=== PATIENT | male | born 1945 | race African-American/Black ===

== ENCOUNTER 2017-05-06 22:13 | Inpatient (IN) ==
[2017-05-07] MEDS ORDERED: SODIUM CHLORIDE 0.9% 500 ML IV STA (02:18)
--- NOTE | 2017-05-07 02:34 | Emergency Department Note ---
Maricarmen Friend Mantricia, am scribing for, and in the presence of, Mao Coburn MD 02:12. Almas Friend Charles R, MD, personally performed the services described in this documentation, ascribed by Felicity Hernadez in my presence, and it is both accurate and complete . Arrival - Arrival Chief Complaint: Weakness Stated Complaint: can't walk ED Nursing Triage Note: C/O Weakness to lower exts, states that the right leg is worse than the left. Onset 0500 this morning upon waking. Pt denies seeking medical attention until now. Denies falling or injury. Denies any other symptoms. Pt is awake, alert and answering questions appropriately. Mode of Arrival: Wheelchair Limitations: No Limitations Source: Patient Time Seen by Provider: 05/07/17 01:53 - History of Present Illness HPI Narrative: Pt is a 72 y/o black male arriving to ED with c/o weakness that onset 0500 yesterday morning. Pt is a poor historian and states that he cannot walk. He reports that his gait is off-balanced and that he woke up weak. He also c/o abdominal pain. Pt admits to smoking but denies drinking alcohol. He has a PMHx of HTN. Pt reports no other complaints to ED. Onset (ago): hour(s) Allergies/Adverse Reactions: Allergies Allergy/AdvReac Type Severity Reaction Status Date / Time No Known Allergies Allergy Verified 04/06/16 13:02 Home Medications: Home Medications Medication Instructions Recorded Confirmed Type Albuterol Inhaler [Proventil 1 puff INH Q6H PRN #1 inhaler 04/04/16 04/06/16 Rx Inhaler] Aspirin EC Tab 81 mg PO DAILY #30 tablet 04/07/16 Rx Atorvastatin [Lipitor] 20 mg PO BEDTIME #30 tablet 04/07/16 Rx Carvedilol [Coreg] 6.25 mg PO BID #60 tablet 04/07/16 Rx Furosemide Tab [Lasix Tab] 40 mg PO DAILY #30 tablet 04/07/16 Rx Lisinopril [Prinivil] 2.5 mg PO DAILY #30 tablet 04/07/16 Rx Potassium Chloride Cap/Tab [K Dur] 20 meq PO DAILY #30 tablet 04/07/16 Rx Review of System - Review of System 12 point system: reviewed and no additional remarkable complaints except as stated - Review of System Constitutional: Absent: chills, diaphoresis, fever Cardiovascular: Absent: chest pain, palpitations Gastrointestinal: Present: abdominal pain Neurological: Present: weakness Medical,Surgical,& Family Hx - Medical History Cardio: History of: CHF, Hypertension Respiratory: History of: Respiratory Problems (EMPHYSEMA) - Family History Family History: Reports;: Family Cancer (BROTHER- NON HODGKINS LYMPHOMA), Family Heart Disease (SISTER), Family Stroke (SISTER) - Social History Smoking Status: Current every day smoker Frequency of Alcohol Use: None Type of Drug Use: None Exam Vital Signs: Vital Signs Temperature 99.7 F H 05/07/17 00:58 Pulse Rate 104 H 05/07/17 00:58 Respiratory Rate 16 05/07/17 00:58 Blood Pressure 113/72 05/07/17 00:58 O2 Sat by Pulse Oximetry 98 05/06/17 22:35 - General General appearance: alert, in no apparent distress, other (weak; emaciated) - Head Head exam: Present: atraumatic, normocephalic, normal inspection - Eye Eye exam: Present: normal appearance, PERRL, EOMI - ENT ENT exam: Present: normal exam, normal oropharynx, mucous membranes moist, TM's normal bilaterally, normal external ear exam - Neck Neck exam: Present: normal inspection, full ROM, trachea midline. Absent: tenderness - Chest Chest inspection: Present: normal inspection, symmetric chest wall rise. Absent : tenderness - Respiratory Respiratory exam: Present: normal lung sounds bilaterally - Cardiovascular Cardiovascular exam: Present: regular rate, normal rhythm, normal heart sounds - Abdominal Exam Abdominal exam: Present: soft, normal bowel sounds. Absent: distention, tenderness, guarding, rebound - Extremities Exam Extremities exam: Present: full ROM, normal capillary refill, other (LE weakness ). Absent: tenderness, pedal edema - Back Exam Back exam: Present: normal inspection, full ROM. Absent: tenderness - Psychiatric Psychiatric exam: Present: normal affect, normal mood - Skin Skin exam: Present: warm, dry, intact, normal color Course - Consultations Consultation #1: Hospitalist will admit patient Time: 05:16 Results - Labs CBC & BMP: 05/07/17 02:18 05/07/17 02:18 Lab Results: I have reviewed the patients labs Critical Care Time Critical Care Time: Yes Total Critical Care Time: 60 Disposition Clinical Impression: Sepsis, Cardiomyopathy, Generalized weakness, Leukocytosis, Fever, Lower extremity weakness, UTI (urinary tract infection), Dehydration, Renal insufficiency Case discussed with: patient, patient's family Disposition: Still a Patient Condition: Guarded Time of Disposition: 04:58 Sepsis - Sepsis Classification of Sepsis: Sepsis - Physical Exam Respiratory exam: rhonchi Capillary Refill: Less Than 3 Seconds Cardiovascular exam: tachycardia Skin exam: normal color NIH Stroke Score - Stroke Score Initial Assessment Level of Consciousness: Alert Level of Consciousness Questions: Answers Both Correctly Level of Consciousness Commands: Obeys Both Correctly Best Gaze: Normal Visual Daniel: No Visual Loss Facial Palsy: Normal Motor - Right Arm: No Drift Motor - Left Arm: No Drift Motor - Right Leg: No Drift Motor - Left Leg: No Drift Limb Ataxia: Absent Sensory (Pin [place]): Partial Loss Best Language: Normal Dysarthria: Normal Extinction / Inattention (Neglect): No Neglect NIH Stroke Score: 1
[2017-05-07 02:36] LABS: Basophils % 0.2 % (0.0-0.8); Hematocrit 42.2 VOL% (42.0-52.0); Hemoglobin 14.2 GM/DL (14.0-18.0); Immature Granulocytes % 2.2 %; Immature Granulocytes Absolute 0.43 #; Lymphocytes # 0.8 10*3/uL (1.4-4.0); Mean Corpuscular HGB Conc 33.6 GM/DL (32-36); Mean Corpuscular Hemoglobin 29 PG (27-34); Mean Corpuscular Volume 85.6 FL (87-102); Mean Platelet Volume 10.3 FL (9.6-12.0); Monocytes % 9.8 % (1.7-12.7); Neutrophils # 16.6 10*3/uL (1.4-7.4); Neutrophils % 83.8 % (38.7-73.9); Platelet Count 153 T/CUMM (130-400); Red Blood Count 4.93 MC/CUMM (3.8-5.5); Red Cell Distribution Width 13.8 % (9.3-17.3); White Blood Count 19.8 T/CUMM (4-12)
[2017-05-07 02:46] LABS: INR 1.2; PT Patient Result 12.7 SECS; Partial Thromboplastin Time 31.3 SECS (0-40)
[2017-05-07 03:03] LABS: Alanine Aminotransferase 22 U/L (16-61); Albumin 3.6 G/DL (3.4-5.0); Alkaline Phosphatase 65 U/L (45-117); Aspartate Amino Transferase 32 U/L (0-37); Blood Urea Nitrogen 32 MG/DL (7-18); Calcium 8.8 MG/DL (8.5-10.1); Glucose 182 MG/DL (74-106); Osmolality,Calculated 286.7 MOS/KG (273-304); Potassium 4.7 MMOL/L (3.5-5.1); Sodium 138 MMOL/L (136-145); Total Protein 6.8 G/DL (6.4-8.3)
[2017-05-07 03:28] LABS: Band Neutrophils 4 % (0-10); Lymphocytes 3 % (20-55); Myelocytes 2 %; Segmented Neutrophils 86 % (50-85)
[2017-05-07 03:29] LABS: Platelet Estimate Normal; Total Cells Counted 100
[2017-05-07 04:26] LABS: Barbiturates Screen,Urine Negative (Negative); Benzodiazepines Screen,Urine Negative (Negative); Cannabinoid Screen,Urine Negative (Negative); Opiate Screen,Urine Negative (Negative); Phencyclidine Screen,Urine Negative (Negative)
[2017-05-07 04:55] LABS: Amorphous Crystals,Urine Occasional /HPF (Few); Bacteria,Urine Few /HPF (Few); Hyaline Casts,Urine 6 /LPF (0-3); Mucus,Urine Occasional /LPF (Occasional); RBC,Urine 5 /HPF (0-4); Sperm,Urine Occasional /HPF (Negative); Squamous Epithelial Cell,Urine Occasional /HPF (0-10); WBC,Urine 16 /HPF (0-6)
[2017-05-07 04:56] LABS: Apearance,Urine Slightly Hazy (Clear); Bilirubin,Urine Negative (Negative); Blood, Urine Large mg/dL (Negative); Glucose,Urine (UA) Negative (Negative); Ketones,Urine Negative (Negative); Nitrite,Urine Negative (Negative); Protein,Urine Negative; Urine Color Dark yellow (Yellow); Urine Urobilinogen 0.2 EU/DL (0.2-1.0)
[2017-05-07] MEDS ORDERED: cefTRIAXone 1,000 MG in SODIUM CHLORIDE 0.9% 100 ML IV STA (05:09)
[2017-05-07] MEDS ORDERED: cefTRIAXone 1,000 MG VIAL ONE (05:20)
[2017-05-07] MEDS ORDERED: SODIUM CHLORIDE 0.9% 100 ML IV ONE (05:20)
[2017-05-07] MEDS ORDERED: LEVOFLOXACIN INJ 250 MG in PREMIX 1 EACH IV SCH (06:00)
--- NOTE | 2017-05-07 06:03 | EKG Report ---
Stationary ECG Study [facility] ER Test Date: 05/07/2017 3:16:28 AM Pat Name: VICKEY DC Department: Room: Gender: M Lamination Operator: : 1945 Requested by: Mao Del Cid Order Number: [id number] Reading MD: MEGAN COLLIER Intervals Iva Rate: 90 P: 74 NC: 137 QRS: 14 QRSD: 85 T: 149 QT: 341 QTc: 389 Interpretive Statements SINUS RHYTHM MODERATE T-WAVE ABNORMALITY, CONSIDER LATERAL ISCHEMIA Electronically Signed On 05-07-17 10:47:14 CDT by MEGAN COLLIER [email or web address]
--- NOTE | 2017-05-07 06:04 | Hospitalist History & Physical ---
Assessment and Plan (1) Abdominal pain Status: Acute Assessment and plan: At the time of my assessment the patient was really started in bed on examination. Association of abdominal pain ataxia can be concerning for possibility of tabes dorsalis. Therefore check RPR on this patient. However the patient does have a urinary tract infection as would not be low because of the abdominal pain Current Visit: Yes (2) Ataxia Status: Acute Assessment and plan: As above. Will get neurology consult. Current Visit: Yes (3) CKD stage 4 secondary to hypertension Status: Acute Current Visit: Yes (4) Leukocytosis Status: Acute Assessment and plan: Secondary to the UTI. Will treat the urinary tract infection continue ceftriaxone and levofloxacin. Levofloxacin to be dosed the patient's GFR Current Visit: Yes (5) Renal insufficiency Status: Acute Current Visit: Yes (6) Sepsis Status: Acute Assessment and plan: This is secondary to urinary tract infection hopefully patient is not bacteremic. Check patient's PSA and also renal sonogram Current Visit: Yes History of Present Illness Chief complaint: Abdominal pain leg weakness and unsteady gait History of present illness: Mr. Gaming is a 72 year old male presented to the ED with complaints of abdominal pain and problems walking since yesterday morning. Patient woke up like this. He lives alone and is not been able to take care of himself very well. Patient is a very poor historian and with the very poor insight. Denies drinking alcohol but admits to smoking some cigarettes. No history of trauma. He does have history of hypertension which he takes medication and believes blood pressure is good. In the emergency room systolic blood pressures in the 160s. Home Medications Medication Instructions Recorded Confirmed Type Albuterol Inhaler [Proventil 1 puff INH Q6H PRN #1 inhaler 04/04/16 05/07/17 Rx Inhaler] Aspirin EC Tab 81 mg PO DAILY #30 tablet 04/07/16 05/07/17 Rx Atorvastatin [Lipitor] 20 mg PO BEDTIME #30 tablet 04/07/16 05/07/17 Rx Carvedilol [Coreg] 6.25 mg PO BID #60 tablet 04/07/16 05/07/17 Rx Furosemide Tab [Lasix Tab] 40 mg PO DAILY #30 tablet 04/07/16 05/07/17 Rx Lisinopril [Prinivil] 2.5 mg PO DAILY #30 tablet 04/07/16 05/07/17 Rx Potassium Chloride Cap/Tab [K Dur] 20 meq PO DAILY #30 tablet 04/07/16 05/07/17 Rx Allergies Allergy/AdvReac Type Severity Reaction Status Date / Time No Known Allergies Allergy Verified 04/06/16 13:02 Medical,Surgical,& Family Hx - Medical History Cardio: History of: CHF, Hypertension Respiratory: History of: Respiratory Problems (EMPHYSEMA) - Family History Family History: Reports;: Family Cancer (BROTHER- NON HODGKINS LYMPHOMA), Family Heart Disease (SISTER), Family Stroke (SISTER) - Social History Smoking Status: Current every day smoker Frequency of Alcohol Use: None Type of Drug Use: None Review of systems: A 12 point system assessment was done by these very difficult to exact date given the poor recall by the patient. He acknowledges weakness of the lower extremity acknowledges having problems walking and acknowledges abdominal pain. I wanted to exact if these symptoms are not new. He acknowledges that he will continue but he has had abdominal pain on and off. No prior history of infections no history of prostatism. Exam - Constitutional Vitals: Period Temp Pulse Resp BP Sys/Pate Pulse Ox Last 24 Hr 99.7 F-99.7 F 104-104 16-16 113-113/72-72 98 General appearance: normal weight - Head Head exam: Present: normocephalic, atraumatic - Eye Eye exam: Present: EOMI, other (Very dusky sclera) Pupils: Present: CHRISTINA - ENT ENT exam: Present: normal exam, other (Dental resection) - Neck Neck exam: Present: normal inspection, other (Supple neck no regional adenopathy midline trachea) - Respiratory Respiratory exam: Present: clear to auscultation bilaterally - Cardiovascular Cardiovascular exam: Present: regular rate and rhythm - GI/Abdominal GI/Abdominal exam: Present: normal bowel sounds, soft, other (No guarding) - Neurological Exam Neurological exam: Present: alert, oriented X3, CN II-XII intact, other (Very poor insight is weakness in the lower extremities I did not walk him because he did not want to stand up being afraid of falling down) - Psychiatric Psychiatric exam: Present: normal affect, normal mood - Skin Skin exam: Present: normal color, warm, dry Results - Labs CBC & BMP: 05/07/17 02:18 05/07/17 02:18 Lab Results: I have reviewed the past 24 hour labs (Patient has very inflamed urine obviously infected white count of 19,800 serum creatinine of 2.3 BUN of 32 urine culture has been sent blood cultures been sent to)
--- NOTE | 2017-05-07 06:34 | CT Report ---
Referring physician: Mao Coburn Exam: CT brain without contrast Date: May 07, 2017 Comparison: None Reason: Hemiparesis, unable to walk The patient was an Emergency Department patient on May 07, 2017. Preliminary report was provided by [facility]. Technique: Axial images of the head were obtained without the use of contrast. Total DLP was 1073.1 mGy*cm. Findings: There is mild generalized cerebral and cerebellar atrophy/volume loss. Areas of hypoattenuation are also seen within the cerebral white matter bilaterally. This is nonspecific but likely represents chronic microvascular ischemic change. There is also a questionable small indeterminate age infarction at the left parietal lobe, which may be remote. Further evaluation could be performed with MRI. No hydrocephalus or midline shift is present. There is no evidence of recent intracranial hemorrhage or abnormal mass effect. No acute osseous process is seen. There may be a small mucous retention cyst within the right maxillary sinus. The mastoid air cells appear clear. Impression: 1. Questionable small indeterminate age infarction at the left parietal lobe, which may be remote. Further evaluation could be performed with MRI. 2. Mild generalized cerebral and cerebellar atrophy/volume loss and probable chronic microvascular ischemic change. The CT exam was performed using one or more of the following dose reduction techniques: Automated exposure control and adjustment of the mA and/or kV according to patient size. PROCEDURE INTERPRETED AT [facility] DEPARTMENT OF RADIOLOGY Final Report Signed by: Dr. Shantelle Gallegos
--- NOTE | 2017-05-07 07:57 | XRay Report ---
Referring Physician: Mao Coburn Exam: XR chest 1V portable Date: May 07, 2017 at 2:44 AM Reason: Cardiomegaly Comparison: Chest one view portable April 06, 2016 Findings: The cardiac silhouette is upper normal in size. There is also persistent mild elevation of the left hemidiaphragm and minimal atelectasis at the lung bases. No pneumothorax or definite pleural fluid is identified. No acute osseous process is seen. Impression: 1. The cardiac silhouette is upper normal in size. It appears less prominent today, which may be related to slight differences in imaging technique. Cardiac size could be better evaluated with a chest PA and lateral study. 2. There is persistent mild elevation of the left hemidiaphragm and minimal atelectasis at the lung bases. PROCEDURE INTERPRETED AT [facility] DEPARTMENT OF RADIOLOGY Final Report Signed by: Dr. Shantelle Gallegos
--- NOTE | 2017-05-07 09:03 | Ultrasound Report ---
Referring Physician: Nick Robles MD Exam: US renal Bilateral Date: May 07, 2017 Reason: Renal failure, UTI Comparison: None Technique: Grayscale and color flow Doppler ultrasound images of the kidneys were obtained. Ultrasound images were captured and stored. Findings: The right kidney measures 7.6 x 4.1 x 3.8 cm, and the left kidney measures 7.6 x 5.1 x 3.7 cm. No hydronephrosis is present. The renal parenchyma echogenicity is unremarkable as visualized. There is a 2.3 x 2.2 x 2.2 cm cyst at the mid left kidney. No suspicious solid renal lesion is identified. Impression: 1. No acute process is identified. 2. The kidneys measure slightly small in size, but the renal parenchyma echogenicity is unremarkable. 3. Left renal cyst. PROCEDURE INTERPRETED AT [facility] DEPARTMENT OF RADIOLOGY Final Report Signed by: Dr. Shantelle Gallegos
--- NOTE | 2017-05-07 09:15 | Neurology Consult Note ---
History of Present Illness History of present illness: 72-year-old right-handed -[place] gentleman with past medical history significant for hypertension, smoking admitted to the hospital with difficulty in walking and unsteady gait patient also has some abdominal pain. He lives at home alone. No family is available at this time to discuss the history. Patient reported that he has been sick for a while. He states that he just cannot walk. No speech difficulties reported. No swallowing difficulties, vision difficulties reported. He states that his right leg is slightly weak. Home Medications Medication Instructions Recorded Confirmed Type Albuterol Inhaler [Proventil 1 puff INH Q6H PRN #1 inhaler 04/04/16 05/07/17 Rx Inhaler] Aspirin EC Tab 81 mg PO DAILY #30 tablet 04/07/16 05/07/17 Rx Atorvastatin [Lipitor] 20 mg PO BEDTIME #30 tablet 04/07/16 05/07/17 Rx Carvedilol [Coreg] 6.25 mg PO BID #60 tablet 04/07/16 05/07/17 Rx Furosemide Tab [Lasix Tab] 40 mg PO DAILY #30 tablet 04/07/16 05/07/17 Rx Lisinopril [Prinivil] 2.5 mg PO DAILY #30 tablet 04/07/16 05/07/17 Rx Potassium Chloride Cap/Tab [K Dur] 20 meq PO DAILY #30 tablet 04/07/16 05/07/17 Rx Allergies Allergy/AdvReac Type Severity Reaction Status Date / Time No Known Allergies Allergy Verified 04/06/16 13:02 12 point system: reviewed and no additional remarkable complaints except as stated Medical,Surgical,& Family Hx - Medical History Cardio: History of: CHF, Hypertension Neurology: History of: TIA Respiratory: History of: Respiratory Problems (EMPHYSEMA) - Family History Family History: Reports;: Family Cancer (BROTHER- NON HODGKINS LYMPHOMA), Family Heart Disease (SISTER), Family Stroke (SISTER) - Social History Smoking Status: Current every day smoker Frequency of Alcohol Use: None Type of Drug Use: None Exam - Constitutional Vitals: Period Temp Pulse Resp BP Sys/Pate Pulse Ox Last 24 Hr 98.0 F-99.7 F 99-104 16-20 113-178/72-92 97-98 Exam: GENERAL: Patient is in no acute distress. NECK: Neck is supple. There is no JVD. No carotid bruits present. No thyroid masses. CVS: First and second heart sounds are normal. There is no S3 present. Regular rate and rhythm. RESPIRATORY: Lungs are clear to auscultation without any rales or rhonchi. ABDOMEN: Soft and non-tender. Bowel sounds are present. There is no hepatosplenomegaly. EXT: There is no palpable edema. Peripheral pulses are present. Skin: No rashes Central Nervous system: General: Alert, awake Speech: Fluent with questionable dysarthria Comprehension: Fair Facial expressions: Normal Cranial Nerves: CN1/Olfactory: Normal CN II/ Optic: Normal, Visual Daniel unreliable CN III, and : CHRISTINA & EOMI CN V: Normal & intact CN VII: face is symmetric CNVIII: Normal CN XI/X/XI/XII: Intact and Normal Motor: Bulk and Tone is normal. Strength in the right 3-4/5 Strength in the left 4-55/5 Sensory: Grossly intact for all the modalities of PP, LT and temp sense Reflexes: 1+ and symmetrical Cerebellar function: Normal finger to nose and heel to mccartney testing. Toes: Equivocal Gait: Could not get out of the bed. Markedly ataxic gait. Results - Labs CBC & BMP: 05/07/17 02:18 05/07/17 02:18 Assessment and Plan (1) UTI (urinary tract infection) Status: Acute Assessment and plan: Continue current antibiotic coverage Current Visit: Yes (2) Gait disorder Status: Acute Assessment and plan: MRI of the brain. Consult PT and OT. Add aspirin a day Current Visit: Yes
--- NOTE | 2017-05-07 10:57 | XRay Report ---
Exam: XR orbits for mri Date: 05/07/2017 10:20 AM Comparison: None Indication: MRI clearance Technique:[3 view orbit] Findings: No metallic foreign body is identified in the orbital location. Impression: No metallic foreign body is identified in the orbital location. The patient is edentulous with degenerative changes. PROCEDURE INTERPRETED AT [facility] DEPARTMENT OF RADIOLOGY Final Report Signed by: Dr. Zaira Mendoza
[2017-05-07] MEDS ORDERED: ACETAMINOPHEN 325 MG TABLET PO PRN (11:58)
--- NOTE | 2017-05-07 13:23 | Magnetic Resonance Report ---
Exam: MR head/brain wo con Date: 05/07/2017 9:17 AM Comparison: CT brain 05/07/2017 Indication: Ataxia, abnormal gait, right leg weakness Technique:[Multiple acquisitions were obtained including sagittal T1, coronal T2, and axial ADC, diffusion, FLAIR, T2, GRE, and T1 scans without contrast only. Scans were obtained on a 1.5 Izabella magnet.] Findings: The ventricles are normal in size with no midline displacement. The pituitary has a normal appearance and the cerebellar tonsils are normal in their location. Very small area of restricted diffusion in the left parietal lobe. No evidence of hemorrhage, mass, or extracerebral collection. Diffuse atrophy with extensive FLAIR/T2 hyperintensities. Enlarged perivascular spaces are noted which are absent a normal variant. Minimal mucosal thickening/fluid in the paranasal sinuses. No acute findings in the orbits, temporal bones, or [place] of [place]. 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 Additional atrophy and extensive microvascular disease. T2 hyperintensities can also be associated with demyelinating disease, vasculitis, viral illness, etc. Enlarged perivascular spaces. Minimal sinusitis. PROCEDURE INTERPRETED AT [facility] DEPARTMENT OF RADIOLOGY Final Report Signed by: Dr. Zaira Mendoza
[2017-05-07] MEDS: SODIUM CHLORIDE 0.9% 1,000 ML IV SCH (14:58)
[2017-05-07] MEDS ORDERED: ALBUTEROL 2.5 MG/3 ML NEB RESP TX PRN (19:00)
[2017-05-07] MEDS: CARVEDILOL 6.25 MG TABLET PO SCH (20:54)
[2017-05-07] MEDS: cefTRIAXone 2,000 MG in SODIUM CHLORIDE 0.9% 100 ML IV SCH (23:15)
[2017-05-08] MEDS: SODIUM CHLORIDE 0.9% 1,000 ML IV SCH ×3 (01:51→21:13)
[2017-05-08 06:30] LABS: Basophils % 0.2 % (0.0-0.8); Eosinophils % 0.1 % (0.00-10.9); Hematocrit 40.6 VOL% (42.0-52.0); Hemoglobin 13.3 GM/DL (14.0-18.0); Immature Granulocytes Absolute 0.15 #; Lymphocytes # 0.9 10*3/uL (1.4-4.0); Lymphocytes % 5.9 % (21.2-54.2); Mean Corpuscular HGB Conc 32.8 GM/DL (32-36); Mean Corpuscular Hemoglobin 28 PG (27-34); Mean Corpuscular Volume 86.8 FL (87-102); Mean Platelet Volume 10.6 FL (9.6-12.0); Monocytes # 1.9 10*3/uL (0.11-0.8); Monocytes % 13.2 % (1.7-12.7); Neutrophils # 11.5 10*3/uL (1.4-7.4); Neutrophils % 79.6 % (38.7-73.9); Platelet Count 140 T/CUMM (130-400); Red Blood Count 4.68 MC/CUMM (3.8-5.5); Red Cell Distribution Width 14.2 % (9.3-17.3); White Blood Count 14.4 T/CUMM (4-12)
[2017-05-08 06:49] LABS: Lactic Acid 1.2 MMOL/L (0.4-2.0)
[2017-05-08 06:57] LABS: Burr Cells Slight; Hypochromasia Slight; Lymphocytes 7 % (20-55); Platelet Estimate Decreased; Segmented Neutrophils 89 % (50-85); Total Cells Counted 100
[2017-05-08 06:59] LABS: Calcium 8.7 MG/DL (8.5-10.1); Magnesium 2.2 MG/DL (1.8-2.4); Osmolality,Calculated 286.3 MOS/KG (273-304); Potassium 4.4 MMOL/L (3.5-5.1)
[2017-05-08] MEDS: CARVEDILOL 6.25 MG TABLET PO SCH ×2 (09:12→20:21)
[2017-05-08] MEDS: LISINOPRIL 2.5 MG TABLET PO SCH (09:12)
[2017-05-08] MEDS: ASPIRIN EC 325 MG TABLET PO SCH (09:12)
[2017-05-08] MEDS: VANCOMYCIN INJ 1,000 MG in SODIUM CHLORIDE 0.9% 250 ML IV SCH (11:02)
--- NOTE | 2017-05-08 16:02 | Hospitalist Progress Note ---
Assessment and Plan (1) Leukocytosis Status: Acute Assessment and plan: Has UTI. on rocephin Blood cultures with gram positive cocci, started on vanc Current Visit: Yes (2) Lower extremity weakness Status: Acute Assessment and plan: Working with PT/OT Neurology consulted MRI with very small acute infarction of the left parietal lobe Ordered echo and carotid dopplers lipid panel ordered Current Visit: Yes (3) UTI (urinary tract infection) Status: Acute Assessment and plan: Continue rocephin Current Visit: Yes (4) Renal insufficiency Status: Acute Assessment and plan: Improving with IV fluids Current Visit: Yes Hospitalist: Subjective Interval history: No acute events overnight. Patient with no complaints. Working with PT/OT. Exam - Constitutional Vitals: Period Temp Pulse Resp BP Sys/Pate Pulse Ox Last 24 Hr 97.9 F-99.2 F 67-102 16-20 147-181/31-83 97-99 General appearance: normal weight - Head Head exam: Present: normocephalic, atraumatic - Eye Eye exam: Present: EOMI Pupils: Present: CHRISTINA - ENT ENT exam: Present: normal exam - Neck Neck exam: Present: normal inspection - Respiratory Respiratory exam: Present: clear to auscultation bilaterally. Absent: rhonchi, wheezes - Cardiovascular Cardiovascular exam: Present: regular rate and rhythm - GI/Abdominal GI/Abdominal exam: Present: normal bowel sounds, soft. Absent: tenderness, rebound - Extremities Exam Extremities exam: Present: normal inspection - Back Exam Back exam: Present: normal inspection - Neurological Exam Neurological exam: Present: alert, oriented X3 - Psychiatric Psychiatric exam: Present: normal affect, normal mood - Skin Skin exam: Present: warm, intact Results - Labs CBC & BMP: 05/08/17 06:11 05/08/17 06:11
--- NOTE | 2017-05-08 16:48 | Ultrasound Report ---
Exam: US carotid duplex BI Date: 05/08/2017 3:53 PM Indication: CVA Findings: Grayscale color flow analysis and spectral analysis imaging was performed with image stored and captured. Right Flow velocities centimeters per second Common carotid artery: 53 Proximal ICA: 29 Distal ICA: 60 External carotid artery: 76 Vertebral artery: 56 ICA/CCA ratio: 1.1 Measurements in millimeters Distal ICA: 6.3 Left: Flow velocities centimeters per second Common carotid artery: 77 Proximal ICA: 31 Distal ICA: 64 External carotid artery: 70 Vertebral artery: 66 ICA/CCA ratio: 0.8 Measurements in millimeters Distal ICA: 5. Mild intimal hyperplasia. Normal color flow. No spectral broadening Impression: 1. Intimal hyperplasia the common carotid arteries 2. 16-49% stenosis of the internal carotid arteries bilaterally. No high-grade stenosis or occlusion present. Today studies were performed utilizing indirect NASCET criteria The ultrasound images were stored and captured PROCEDURE INTERPRETED AT [facility] DEPARTMENT OF RADIOLOGY Final Report Signed by: Dr. Julien Garrido
--- NOTE | 2017-05-08 17:37 | Neurology Progress Note ---
Neurology - PN : Subjective Interval history: Patient seems to be doing better. Participating somewhat in therapy. No new problems reported. 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 Exam (Progress Note) - Constitutional Vitals: Period Temp Pulse Resp BP Sys/Pate Pulse Ox Last 24 Hr 98.0 F-99.2 F 67-102 18-20 147-181/31-83 97-99 Exam: GENERAL: Patient is in no acute distress. NECK: Neck is supple. There is no JVD. No carotid bruits present. No thyroid masses. CVS: First and second heart sounds are normal. There is no S3 present. Regular rate and rhythm. RESPIRATORY: Lungs are clear to auscultation without any rales or rhonchi. ABDOMEN: Soft and non-tender. Bowel sounds are present. There is no hepatosplenomegaly. EXT: There is no palpable edema. Peripheral pulses are present. Skin: No rashes Central Nervous system: General: Alert, awake Speech: Fluent with questionable dysarthria Comprehension: Fair Facial expressions: Normal Cranial Nerves: CN1/Olfactory: Normal CN II/ Optic: Normal, Visual Daniel unreliable CN III, and : CHRISTINA & EOMI CN V: Normal & intact CN VII: face is symmetric CNVIII: Normal CN XI/X/XI/XII: Intact and Normal Motor: Bulk and Tone is normal. Strength in the right 3-4/5 Strength in the left 4-55/5 Sensory: Grossly intact for all the modalities of PP, LT and temp sense Reflexes: 1+ and symmetrical Cerebellar function: Normal finger to nose and heel to mccartney testing. Toes: Equivocal Gait: Could not get out of the bed. Markedly ataxic gait. Results - Labs CBC & BMP: 05/08/17 06:11 05/08/17 06:11 Assessment and Plan (1) UTI (urinary tract infection) Status: Acute Assessment and plan: Continue current antibiotic coverage Current Visit: Yes (2) Gait disorder Status: Acute Assessment and plan: Continue aspirin a day Consult TMR Current Visit: Yes (3) Acute CVA (cerebrovascular accident) Status: Acute Current Visit: Yes
[2017-05-08] MEDS: cefTRIAXone 2,000 MG in SODIUM CHLORIDE 0.9% 100 ML IV SCH (23:48)
[2017-05-09 05:09] LABS: Basophils % 0.2 % (0.0-0.8); Eosinophils # 0.2 10*3/uL (0.0-0.87); Hematocrit 37.1 VOL% (42.0-52.0); Hemoglobin 12.4 GM/DL (14.0-18.0); Immature Granulocytes % 0.9 %; Immature Granulocytes Absolute 0.09 #; Lymphocytes # 0.9 10*3/uL (1.4-4.0); Lymphocytes % 8.6 % (21.2-54.2); Mean Corpuscular HGB Conc 33.4 GM/DL (32-36); Mean Corpuscular Hemoglobin 29 PG (27-34); Mean Corpuscular Volume 85.5 FL (87-102); Mean Platelet Volume 10.4 FL (9.6-12.0); Monocytes # 1.5 10*3/uL (0.11-0.8); Monocytes % 14.6 % (1.7-12.7); Neutrophils # 7.7 10*3/uL (1.4-7.4); Neutrophils % 73.7 % (38.7-73.9); Platelet Count 133 T/CUMM (130-400); Red Blood Count 4.34 MC/CUMM (3.8-5.5); Red Cell Distribution Width 13.9 % (9.3-17.3); White Blood Count 10.4 T/CUMM (4-12)
[2017-05-09 05:31] LABS: Hypochromasia Slight; Microcytosis Slight
[2017-05-09 05:32] LABS: Burr Cells Slight; Platelet Estimate Adequate
[2017-05-09 05:45] LABS: Calcium 8.1 MG/DL (8.5-10.1); Magnesium 2.4 MG/DL (1.8-2.4); Osmolality,Calculated 286.3 MOS/KG (273-304); Potassium 3.9 MMOL/L (3.5-5.1); Risk Ratio 4.27; VLDL CHOLESTEROL 18.6 MG/DL
[2017-05-09] MEDS: CARVEDILOL 6.25 MG TABLET PO SCH ×2 (08:32→20:55)
[2017-05-09] MEDS: ASPIRIN EC 325 MG TABLET PO SCH (08:32)
[2017-05-09] MEDS: LISINOPRIL 2.5 MG TABLET PO SCH (08:32)
[2017-05-09] MEDS: VANCOMYCIN INJ 1,000 MG in SODIUM CHLORIDE 0.9% 250 ML IV SCH (10:54)
--- NOTE | 2017-05-09 11:26 | Case Mgmt Physician Query Form ---
TB Signs and Symptoms Screening ([place]) INSTRUCTIONS: To be completed annually on residents/staff with a significant Tuberculin Skin Test (TST) upon admission/hire or a prior significant TST. To be completed on all staff at hire. Please respond to each listed symptom with an (X) in either the "YES" or "NO" box. Do you currently have any of the following symptoms: YES NO ( ) (x ) A cough If yes, is it: ( ) Productive ( ) Non- productive ( ) (x ) Hemoptysis (spitting up blood) ( ) (x ) Chest pains ( ) (x ) Weight Loss ( ) (x ) Fever ( ) (x ) Night Sweats ( ) (x ) Weakness ( ) (x ) Loss of Appetite ( ) (x ) Difficulty Breathing If you answered YES" to any of the above questions, how long have symptoms been present? Comments: ABY
--- NOTE | 2017-05-09 15:39 | Neurology Progress Note ---
Neurology - PN : Subjective Interval history: Mr. mims seems to be doing okay. Walking somewhat with walker with mod assist. Insurance denied acute rehab placement. Exam (Progress Note) - Constitutional Vitals: Period Temp Pulse Resp BP Sys/Pate Pulse Ox Last 24 Hr 96.9 F-98.8 F 67-97 16-20 127-178/70-98 95-99 Exam: GENERAL: Patient is in no acute distress. NECK: Neck is supple. There is no JVD. No carotid bruits present. No thyroid masses. CVS: First and second heart sounds are normal. There is no S3 present. Regular rate and rhythm. RESPIRATORY: Lungs are clear to auscultation without any rales or rhonchi. ABDOMEN: Soft and non-tender. Bowel sounds are present. There is no hepatosplenomegaly. EXT: There is no palpable edema. Peripheral pulses are present. Skin: No rashes Central Nervous system: General: Alert, awake Speech: Fluent with questionable dysarthria Comprehension: Fair Facial expressions: Normal Cranial Nerves: CN1/Olfactory: Normal CN II/ Optic: Normal, Visual Daniel unreliable CN III, and : CHRISTINA & EOMI CN V: Normal & intact CN VII: face is symmetric CNVIII: Normal CN XI/X/XI/XII: Intact and Normal Motor: Bulk and Tone is normal. Strength in the right 3-4/5 Strength in the left 4-55/5 Sensory: Grossly intact for all the modalities of PP, LT and temp sense Reflexes: 1+ and symmetrical Cerebellar function: Normal finger to nose and heel to mccartney testing. Toes: Equivocal Gait: Could not get out of the bed. Markedly ataxic gait. Results - Labs CBC & BMP: 05/09/17 05:03 05/09/17 05:03 Assessment and Plan (1) UTI (urinary tract infection) Status: Acute Assessment and plan: Continue current antibiotic coverage Current Visit: Yes (2) Gait disorder Status: Acute Assessment and plan: As above Current Visit: Yes (3) Acute CVA (cerebrovascular accident) Status: Acute Assessment and plan: Continue aspirin a day. Okay to go to swing bed when okay with PCP Sign off please call as needed Current Visit: Yes
--- NOTE | 2017-05-09 16:30 | Hospitalist Progress Note ---
Assessment and Plan (1) Leukocytosis Status: Acute Assessment and plan: Has UTI. on rocephin Blood cultures with gram positive cocci, started on vanc Repeat blood cultures with no growth after one day, believe this gonna be contaminant. Current Visit: Yes (2) Lower extremity weakness Status: Acute Assessment and plan: Working with PT/OT Neurology consulted MRI with very small acute infarction of the left parietal lobe Ordered echo Carotid dopplers ok lipid panel ordered Current Visit: Yes (3) UTI (urinary tract infection) Status: Acute Assessment and plan: Continue rocephin Urine culture grew enterobacter cloacae Current Visit: Yes (4) Renal insufficiency Status: Acute Assessment and plan: Improving with IV fluids Current Visit: Yes Hospitalist: Subjective Interval history: No acute events overnight. Patient doing well, ambulating with PT/OT. Working on placement Exam - Constitutional Vitals: Period Temp Pulse Resp BP Sys/Pate Pulse Ox Last 24 Hr 96.9 F-98.8 F 79-97 16-20 127-178/70-98 95-99 General appearance: normal weight - Head Head exam: Present: normocephalic, atraumatic - Eye Eye exam: Present: EOMI Pupils: Present: CHRISTINA - ENT ENT exam: Present: normal exam - Neck Neck exam: Present: normal inspection - Respiratory Respiratory exam: Present: clear to auscultation bilaterally. Absent: wheezes - Cardiovascular Cardiovascular exam: Present: regular rate and rhythm - GI/Abdominal GI/Abdominal exam: Present: normal bowel sounds, soft. Absent: tenderness, rebound - Extremities Exam Extremities exam: Present: normal inspection - Back Exam Back exam: Present: normal inspection - Neurological Exam Neurological exam: Present: alert, oriented X3 - Psychiatric Psychiatric exam: Present: normal affect, normal mood - Skin Skin exam: Present: warm, intact Results - Labs CBC & BMP: 05/09/17 05:03 05/09/17 05:03
[2017-05-09] MEDS: SODIUM CHLORIDE 0.9% 1,000 ML IV SCH ×2 (16:38→18:29)
--- NOTE | 2017-05-09 17:39 | ECHO Report ---
Antoine Gaming Exam Date: 05/09/2017 10:23 Referring Physician: Technologist: alana Bone ARDMS, RVT Age: 72 Ht (in): 67 Wt (lb): 156 Gender: M Exam Location: [facility] Echo Indications: Renal Insufficiency, CVA, Leukocytosis, UTI, Lower extremity weakness BP: 127 / 70 HR: 79 Rhythm: Sinus Technical Quality: IMPRESSIONS 1. Left ventricle is normal size with mild global hypokinesis with ejection fraction of 45%. There is mild concentric left ventricular hypertrophy. Mild diastolic dysfunction. 2. Right atrium is mildly dilated, left atrium is mild to moderately dilated. 3. Right ventricle is normal size and function. 4. Aortic valve is mildly sclerotic but without gross evidence of stenosis or regurgitation. 5. Mild elevated right-sided pressures. 6. Mild pulmonic valve insufficiency. MEASUREMENTS (Male / Female) Normal Values 2D ECHO LV Diastolic Diameter PLAX 4.2 cm 4.2 - 5.9 / 3.9 - 5.3 cm LV Systolic Diameter PLAX 3.3 cm LV Fractional Shortening PLAX 21.5 % IVS Diastolic Thickness 1.3 cm 0.6 - 1.0 / 0.6 - 0.9 cm LVPW Diastolic Thickness 1.2 cm 0.6 - 1.0 / 0.6 - 0.9 cm RV Internal Dim ED PLAX 2.8 cm Aortic Root Diameter 3.6 cm LA Systolic Diameter LX 4.9 cm 3.0 - 4.0 / 2.7 - 3.8 cm DOPPLER TR Peak Velocity 307.0 cm/s TR Peak Gradient 37.7 mmHg FINDINGS Left Ventricle Normal left ventricular cavity size. Mild left ventricular hypertrophy. Left ventricular ejection fraction is estimated at 45 %. Right Ventricle Normal right ventricular size. Right Atrium The right atrium is mildly enlarged. Left Atrium Moderately increased left atrial size. Mitral Valve Morphologically normal mitral valve without significant stenosis or prolapse. There is no mitral regurgitation. Aortic Valve Aortic valve is mildly sclerotic with good excursion/motion. There is no stenosis or regurgitation. Tricuspid Valve Morphologically normal tricuspid valve. Trace tricuspid valve regurgitation. Tricuspid regurgitation velocities suggest a PAP of 48 mmHg. Pulmonic Valve Morphologically normal pulmonic valve. Mild pulmonary valve regurgitation. Pericardium Normal pericardium without effusion. Aorta Normal ascending aorta dimension. Ehsan Metzger MD (Electronically Signed) Final Date: 09 May 2017 17:37
[2017-05-10] MEDS: cefTRIAXone 2,000 MG in SODIUM CHLORIDE 0.9% 100 ML IV SCH (01:08)
[2017-05-10 05:36] LABS: Basophils % 0.3 % (0.0-0.8); Eosinophils # 0.3 10*3/uL (0.0-0.87); Eosinophils % 3.9 % (0.00-10.9); Hematocrit 36.4 VOL% (42.0-52.0); Hemoglobin 12.2 GM/DL (14.0-18.0); Immature Granulocytes % 1.5 %; Immature Granulocytes Absolute 0.11 #; Lymphocytes # 1.1 10*3/uL (1.4-4.0); Lymphocytes % 15.3 % (21.2-54.2); Mean Corpuscular HGB Conc 33.5 GM/DL (32-36); Mean Corpuscular Hemoglobin 29 PG (27-34); Mean Corpuscular Volume 85.6 FL (87-102); Mean Platelet Volume 10.5 FL (9.6-12.0); Monocytes # 1.1 10*3/uL (0.11-0.8); Monocytes % 15.3 % (1.7-12.7); Neutrophils # 4.8 10*3/uL (1.4-7.4); Neutrophils % 63.7 % (38.7-73.9); Platelet Count 148 T/CUMM (130-400); Red Blood Count 4.25 MC/CUMM (3.8-5.5); Red Cell Distribution Width 14.2 % (9.3-17.3); White Blood Count 7.5 T/CUMM (4-12)
[2017-05-10 06:02] LABS: Band Neutrophils 1 % (0-10); Burr Cells Slight; Eosinophils 2 % (0-10); Hypochromasia 1+; Lymphocytes 17 % (20-55); Ovalocytes Slight; Platelet Estimate Normal; Segmented Neutrophils 66 % (50-85); Total Cells Counted 100
[2017-05-10 06:03] LABS: Calcium 8.5 MG/DL (8.5-10.1); Magnesium 2.4 MG/DL (1.8-2.4); Microcytosis Slight; Osmolality,Calculated 288.8 MOS/KG (273-304); Potassium 3.9 MMOL/L (3.5-5.1)
[2017-05-10] MEDS ORDERED: TUBERCULIN SKIN TEST 0.1 ML SYRINGE INTRADERM ONE (07:03)
[2017-05-10] MEDS: LISINOPRIL 2.5 MG TABLET PO SCH (10:41)
[2017-05-10] MEDS: SODIUM CHLORIDE 0.9% 1,000 ML IV SCH (10:41)
[2017-05-10] MEDS: ASPIRIN EC 325 MG TABLET PO SCH (10:42)
[2017-05-10] MEDS: CARVEDILOL 6.25 MG TABLET PO SCH ×2 (10:42→20:44)
[2017-05-10] MEDS: VANCOMYCIN INJ 1,000 MG in SODIUM CHLORIDE 0.9% 250 ML IV SCH (11:24)
--- NOTE | 2017-05-10 13:36 | Hospitalist Progress Note ---
Assessment and Plan (1) Leukocytosis Status: Acute Assessment and plan: Has UTI. on rocephin Blood cultures with gram positive cocci, started on vanc Repeat blood cultures with no growth after one day, possibly contaminant Current Visit: Yes (2) Lower extremity weakness Status: Acute Assessment and plan: Working with PT/OT Neurology consulted, signed off MRI with very small acute infarction of the left parietal lobe Echo performed Carotid dopplers ok lipids ok Working on rehab placement Current Visit: Yes (3) UTI (urinary tract infection) Status: Acute Assessment and plan: Continue rocephin, day 3 Urine culture grew enterobacter cloacae Current Visit: Yes (4) Renal insufficiency Status: Acute Assessment and plan: Improving with IV fluids Appears to be at baseline per our system Discontinue IV fluids, encourage po intake Current Visit: Yes Hospitalist: Subjective Interval history: No acute events overnight. Patient seen today sitting in chair beside bed. He's working well with PT/OT. Exam - Constitutional Vitals: Period Temp Pulse Resp BP Sys/Pate Pulse Ox Last 24 Hr 96.7 F-98.8 F 72-93 16-20 151-180/90-97 97-99 General appearance: under weight - Head Head exam: Present: normocephalic, atraumatic - Eye Eye exam: Present: EOMI Pupils: Present: CHRISTINA - ENT ENT exam: Present: normal exam - Neck Neck exam: Present: normal inspection - Respiratory Respiratory exam: Present: clear to auscultation bilaterally. Absent: wheezes - Cardiovascular Cardiovascular exam: Present: regular rate and rhythm - GI/Abdominal GI/Abdominal exam: Present: normal bowel sounds, soft. Absent: tenderness, rebound - Extremities Exam Extremities exam: Present: normal inspection - Back Exam Back exam: Present: normal inspection - Neurological Exam Neurological exam: Present: alert, oriented X3 - Psychiatric Psychiatric exam: Present: normal affect, normal mood - Skin Skin exam: Present: warm, intact Results - Labs CBC & BMP: 05/10/17 04:54 05/10/17 04:54
[2017-05-11] MEDS: cefTRIAXone 2,000 MG in SODIUM CHLORIDE 0.9% 100 ML IV SCH (00:02)
[2017-05-11 07:06] LABS: Calcium 8.8 MG/DL (8.5-10.1); Magnesium 2.4 MG/DL (1.8-2.4); Osmolality,Calculated 292.4 MOS/KG (273-304); Potassium 4.2 MMOL/L (3.5-5.1)
[2017-05-11] MEDS: CARVEDILOL 6.25 MG TABLET PO SCH (09:06)
[2017-05-11] MEDS: LISINOPRIL 2.5 MG TABLET PO SCH (09:06)
[2017-05-11] MEDS: ASPIRIN EC 325 MG TABLET PO SCH (09:06)
[2017-05-11] MEDS ORDERED: VANCOMYCIN INJ 1,000 MG in SODIUM CHLORIDE 0.9% 250 ML IV SCH (12:00)
[2017-05-11 13:02] VITALS: BP 174/93
--- NOTE | 2017-05-11 14:13 | Discharge Summary ---
<Alejandra Holland - Last Filed: 05/11/17 14:02> Hospital Course - Hospital Course Hospital Course: This is a very pleasant 72-year-old male that presented to the ED at [facility] on May 07, 2017 for evaluation of weakness and inability to walk. The patient has a medical history significant for congestive heart failure, hypertension, nicotine addiction, and emphysema. The patient reported the onset of the above symptoms on the morning of presentation. The patient reported that he noticed that he could not walk when he woke up on that morning. He reports that he attempted to walk multiple times and that his gait was off balance and he was profoundly weak. In addition the patient complained of abdominal pain. The patient reported a current history of smoking however denies drinking alcohol. He became alarmed and notified his family. They transported him to the ED for further evaluation. The patient was assessed at the time of ED presentation. He was noted to be normotensive with a blood pressure 113/72. The patient was also mildly febrile with a temperature noted at 99.7. Complete blood count was obtained and reported a white blood cell count at 19.8, hemoglobin of 14.2, hematocrit 42.2, and platelet count at 153. Chemistry panel reported a sodium at 138, potassium at 4.7, chloride at 102, Carbon dioxide at 25, BUN at 32, creatinine at 2.30 and glucose at 182. Urinalysis reported a large amount of leukocytes present. CT head was obtained which suggested a small questionable indeterminate age infarct at the left parietal lobe which could be remote in origin and mild generalized cerebral and cerebella atrophy/volume loss and probable chronic microvascular ischemic change. Chest x-ray was significant for persistent mild elevation of the left hemidiaphragm and minimal atelectasis at the lung bases the patient was subsequently admitted to the hospitalist group for continuation of care. Empiric antibiotic coverage was initiated. ESTUARDO inhibitors, beta-blockers, and aspirin was initiated prophylactically. Physical therapy and Occupational Therapy consultations were requested. Renal ultrasound reported no acute processes, the kidneys were slightly small in size, but the renal parenchymal echogenicity is unremarkable and the presence of a left renal cyst was noted. Neurology was consulted. MRI was obtained on May 07, 2017 which reported a very small acute infarction in the left parietal lobe, additional atrophy and extensive microvascular disease, T2 hyperintensities can be associated with demyelinating disease, vasculitis, and or vascular illnesses. In addition there was enlargement to the perivascular spaces and minimal sinusitis. The patient's condition has greatly improved since admission. He has not experienced any significant overnight events. His vital signs are stable. Today, we feel that he is indeed appropriate for discharge to the [facility] for continuation of care and rehabilitation. He will need to continue Vancomycin for 14 days beyond clear blood cultures to complete therapy on May 22, 2017 for Staph simulans bacteremia and will need to continue Ceftriaxone for a 7 day course to complete on May 14 for and Enterobacter cloacae UTI. Discharge Plan - Discharge Data Disposition: Swing Bed, Hos Based, [facility] - Discharge Medications New Albuterol Neb [Proventil Neb] 2.5 mg RESP TX RT Q6H PRN PRN Reason: Shortness Of Breath Carvedilol [Coreg] 6.25 mg PO BID tablet Lisinopril [Prinivil] 2.5 mg PO DAILY tablet cefTRIAXone [Rocephin] 2,000 mg IV Q24H vial Acetaminophen Tab [Tylenol Tab] 650 mg PO Q4H PRN tablet PRN Reason: Fever, Headache, Mild Pain Aspirin EC Tab 325 mg PO DAILY tablet Vancomycin Inj 1,000 mg IV Q18H vial Continue Albuterol Inhaler [Proventil Inhaler] 1 puff INH Q6H PRN #1 inhaler PRN Reason: Shortness Of Breath/Wheezing Discontinued Aspirin EC Tab 81 mg PO DAILY #30 tablet Atorvastatin [Lipitor] 20 mg PO BEDTIME #30 tablet Carvedilol [Coreg] 6.25 mg PO BID #60 tablet Furosemide Tab [Lasix Tab] 40 mg PO DAILY #30 tablet Lisinopril [Prinivil] 2.5 mg PO DAILY #30 tablet Potassium Chloride Cap/Tab [K Dur] 20 meq PO DAILY #30 tablet - Follow Up or Referral - Forms/Instructions Exam - Constitutional Vitals: Period Temp Pulse Resp BP Sys/Pate Pulse Ox Last 24 Hr 96.8 F-99.1 F 68-99 16-22 156-198/75-99 91-99 Discharge Results Procedures and tests throughout hospitalization: Pending Orders 05/08/17 10:24 Blood Culture Routine 05/08/17 16:04 Stool Culture Routine cdiff [C. Diff Toxins A & B] Routine Labs on day of discharge: Labs from last 24 hours 05/11/17 05/11/17 10:38 04:10 Sodium 147 H Potassium 4.2 Chloride 112 H Carbon Dioxide 24 Anion Gap 15.2 H BUN 17 Creatinine 1.50 H GFR Calculation 55 BUN/Creatinine Ratio 11.00 Glucose 88 Calculated Osmolality 292.4 Calcium 8.8 Magnesium 2.4 Vancomycin Trough 7.5 L Preliminary micro results at discharge 05/08/17 10:24 Blood Culture - Preliminary Blood No growth at 3 days 05/08/17 10:32 Blood Culture - Preliminary Blood No growth at 3 days DS: Provider Date of admission: 05/07/17 05:55 Primary care physician: Tono Pino MD Attending physician on admission: Nick Robles MD Consults: 05/07/17 06:14 Consult to Physician [CONS] Routine Comment: On-call/ataxia Consulting Provider: Ryne Hall Consult to Specialist Group: Neurology When should Consulting Provider be notified: In am Person Notified: kalina Date Notified: 05/07/17 Time Notified: 08:51 05/07/17 07:44 Consult to Dietitian [CONS] Routine Reason for Dietitian: Other 05/07/17 13:25 Consult to Occupational Therapy [CONS] Routine Reason for Occupational Therapy: Evaluate and Treat Consult to Physical Therapy [CONS] Routine Reason for Physical Therapy: Evaluate and Treat 05/08/17 10:30 Consult to Pharmacy [CONS] Routine Reason for Pharmacy Consult: Dose/Manage Vancomycin 05/08/17 18:11 Consult to Case Mgmt/Social Srvs [CONS] Routine Reason for Case Mgmt/Social Srvs: Rehab Consult Comment: [facility] Discharging clinician: Alejandra Holland CNP <Tracy Rothman - Last Filed: 05/11/17 14:36> Diagnosis - Discharge Diagnosis (1) Cardiomyopathy Status: Chronic (2) Sepsis Status: Resolved (3) Generalized weakness Status: Acute (4) Leukocytosis Status: Resolved (5) Fever Status: Resolved (6) Lower extremity weakness Status: Acute (7) UTI (urinary tract infection) Status: Acute (8) CKD stage 4 secondary to hypertension Status: Resolved (9) Gait disorder Status: Acute (10) Acute CVA (cerebrovascular accident) Status: Acute Discharge Plan - Discharge Data Condition at Discharge: Stable Discharge Diet: regular diet Activity: as per physical therapy Hygiene: no restrictions DS: Provider Expected date of discharge: 05/11/17
== END 2017-05-11 15:25 | DRG 871 ==
LOC: N.ED 22:13 → N.EDINP 05-07 05:55 → SUATTDRO 05-07 05:55 → N.2E 05-07 06:48
PROVIDERS: ADMIT Internal Medicine Infectious Disease; ATTEND Internal Medicine